=== PATIENT | female | born 1970 | race Native Hawaiian/Other Pacific Islander ===

== ENCOUNTER 2018-11-03 14:51 | Emergency (ER) | payer OTHER ==
[~2018-11-03] VITALS: Ht 162.6 cm; Wt 64.9 kg
[2018-11-03 16:34] VITALS: BP 110/68; TEMP 98
== END 2018-11-03 16:34 | disposition home or self-care (01) ==
LOC: ED 14:51
DX: G56.01 Carpal tunnel syndrome, right upper limb (principal)
CPT/HCPCS: 99282